=== PATIENT | female | born 1950 | race Two or more races ===

== ENCOUNTER 2018-09-19 23:28 | Emergency (ER) | payer MEDICARE, MEDICAID ==
[~2018-09-19] VITALS: Ht 167.6 cm; Wt 117.9 kg
[2018-09-20] MEDS ORDERED: TESSALON PERLE100 MG ORAL (01:38)
[2018-09-20] MEDS ORDERED: HYDROCHLOROTHIA25 MG ORAL (01:38)
[2018-09-20] MEDS ORDERED: vit d2 PO (01:38)
[2018-09-20] MEDS ORDERED: LEVOTHYROXINE125 MCG ORAL (01:38)
[2018-09-20] MEDS ORDERED: promethazine dm (01:38)
[2018-09-20] MEDS ORDERED: CO Q-10100 M1 PO (01:38)
[2018-09-20] MEDS ORDERED: PALIPERIDONE ER6 MG PO (01:38)
[2018-09-20] MEDS ORDERED: FLUOXETINE HCL40 MG ORAL (01:38)
[2018-09-20] MEDS ORDERED: CICLOPIROX 8%34.6 ML TP (01:38)
[2018-09-20 01:41] VITALS: BP 165/75
--- NOTE | 2018-09-20 01:41 | NUR ---
ED Nurse Note: pt brought in by [facility], c/c right eye redness, pt denies any pain, denies discharge nor vision changes. will cont monitor. noted redness in sclera on right eye, no dischage at this time.
[2018-09-20] MEDS ORDERED: NAPHCON-A EYE D15 ML OP (01:43)
--- NOTE | 2018-09-20 02:51 | NUR ---
ED Nurse Note: pt cleared to be d/c pe ERMD, pt discharge and aftercare instruction w/ prescription provided, pt advised to follow up with opthamologist, or return to ed if changes in condition, pt education done via discussion and handout, pt verbalized understanding and agrees with plan, vss, care endorsed to [facility] personnel. left w/ all belongings.
[2018-09-20 02:52] VITALS: BP 164/70
--- NOTE | 2018-09-20 06:27 | Emergency Room Report ---
History of Present Illness General Chief Complaint: Eye Problems Source: EMS Present Illness HPI 67-year-old female sent in from nursing facility for increased right eye redness patient had onset of symptoms several days. She denies any pain or visual changes. She denies any flashing lights or floaters. She had not been having any recent injury. She had not been having any pain to the area. She denies any increased discharge. She had some mild itchiness to the right eye. Allergies: Coded Allergies: No Known Allergies (Unverified , 09/20/18) Patient History Past Medical History: see triage record Reviewed Nursing Documentation: PMH: Agreed; PSxH: Agreed Nursing Documentation-PMH Hx Hypertension: Yes Hx Diabetes: Yes Review of Systems All Other Systems: negative except mentioned in HPI Physical Exam Vital Signs Date Time Temp Pulse Resp B/P (MAP) Pulse Ox O2 Delivery O2 Flow Rate FiO2 09/19/18 23:30 98.2 63 180/85 (116) 98 Room Air 09/20/18 01:41 16 General Appearance: well appearing, no apparent distress, alert, GCS 15, obese Head: normocephalic, atraumatic ENT: hearing grossly normal, normal voice Neck: full range of motion, supple Respiratory: chest non-tender, lungs clear, no respiratory distress, speaking full sentences Gastrointestinal: normal inspection, normal bowel sounds, non tender, soft Musculoskeletal: normal inspection Neurologic: normal inspection, alert, oriented x3, normal gait Psychiatric: mood/affect normal Skin: no rash Medical Decision Making Diagnostic Impression: Primary Impression: Subconjunctival hemorrhage of right eye Additional Impression: Pterygium ER Course Patient presented for right eye redness. Differential diagnosis include was not limited to conjunctivitis, pterygium, allergic reaction among others. patient has a benign exam and does not appear to require any further imaging or laboratory testing at this time. Patient appears to be stable for outpatient management. She does not have any change in visual acuity. She does not appear to have any evidence of acute conjunctivitis and appears to be stable for discharge back to her facility. Patient was to return if any worsening condition or other concerns. Last Vital Signs Date Time Temp Pulse Resp B/P (MAP) Pulse Ox O2 Delivery O2 Flow Rate FiO2 09/20/18 02:52 97.8 63 16 164/70 97 Room Air Status: improved Disposition: ASSISTED LIVING Condition: Stable Scripts Naphazoline Hcl/Phenir Mal (NAPHCON-A EYE DROPS) 15 Ml Drops 15 ML OP DAILY, #15 ML Prov: Primo Galvez MD 09/20/18 Referrals: Nicole Crandall MD (PCP) Patient Instructions: Subconjunctival Hemorrhage Additional Instructions: Pterygium to right eye. Primo Galvez MD Sep 20, 2018 06:27
== END 2018-09-20 02:53 | disposition home or self-care (01) ==
LOC: EDBD 23:28 → EMR 09-20 00:09
DX: H11.31 Conjunctival hemorrhage, right eye (principal); H11.001 Unspecified pterygium of right eye; E66.9 Obesity, unspecified; I10 Essential (primary) hypertension; E11.9 Type 2 diabetes mellitus without complications; Z68.41 Body mass index [BMI] 40.0-44.9, adult
CPT/HCPCS: 99283